=== PATIENT | female | born 1950 | race Caucasian/White ===

== ENCOUNTER → 2020-08-22 | Outpatient (CLI) | payer OTHER | LOC: RAD 15:27 | PROVIDERS: ATTEND Family Medicine | DX: J44.9 Chronic obstructive pulmonary disease, unspecified (principal) ==

== ENCOUNTER 2020-09-26 13:17 | Inpatient (IN) | payer OTHER ==
[~2020-09-26] VITALS: Ht 167.6 cm; Wt 77.1 kg
[2020-09-26 13:26] VITALS: BP 120/72
[2020-09-26 14:07] LABS: ABSOLUTE NEUTROPHILS 13.9 thou/uL (1.4-8.2); BASOPHILS 0.4 % (0.0-2.0); EOSINOPHILS 0.1 % (0.0-3.0); HEMATOCRIT 41.2 % (37.0-47.0); HEMOGLOBIN 13.4 gm/dL (12.0-15.0); LYMPHOCYTES 6.6 % (24.0-44.0); MCH 27.6 pg (26.0-34.0); MCHC 32.6 g/dL (28.0-37.0); MCV 84.5 fL (80.0-100.0); MONOCYTES 8.6 % (1.0-8.0); PLATELET COUNT 576 thou/uL (150-400); POLYS 84.3 % (36.0-66.0); RBC 4.87 mil/uL (4.20-5.00); RDW 14.2 % (10.5-14.5); WBC 16.4 thou/uL (4.0-11.0)
[2020-09-26 14:16] LABS: POTASSIUM 3.2 mmol/L (3.5-5.1)
[2020-09-26 14:20] LABS: BE(vivo) -2.3 mmol/L (-2 to +3); HCO3 20.1 mmol/L (22.0-26.0); PCO2 28.6 mmHg (35.0-45.0); PO2 62.6 mmHg (80.0-100.0); pH 7.464 (7.360-7.450); sO2 93.5 % (92.0-98.0)
[2020-09-26 14:28] LABS: ALBUMIN 2.6 g/dL (3.4-5.0); DIRECT BILIRUBIN 0.2 mg/dL (<0.1-0.2); TOTAL BILIRUBIN 0.8 mg/dL (0.2-1.0); TOTAL PROTEIN 7.6 g/dL (6.4-8.2)
[2020-09-27 06:18] LABS: HEMATOCRIT 36.1 % (37.0-47.0); HEMOGLOBIN 11.8 gm/dL (12.0-15.0); MCH 27.5 pg (26.0-34.0); MCHC 32.7 g/dL (28.0-37.0); MCV 84.2 fL (80.0-100.0); RBC 4.29 mil/uL (4.20-5.00); RDW 14.2 % (10.5-14.5); WBC 13.4 thou/uL (4.0-11.0)
[2020-09-27 06:34] LABS: ANION GAP 16 mmol/L (7-16); BUN 12 mg/dL (7-18); CALCIUM 8.6 mg/dL (8.5-10.1); CHLORIDE 104 mmol/L (98-107); CO2 20 mmol/L (21-32); CREATININE 0.8 mg/dL (0.6-1.0); GLUCOSE 102 mg/dL (74-106); SODIUM 140 mmol/L (136-145); TROPONIN-I <0.06 ng/mL (<0.06)
--- NOTE | 2020-09-27 07:06 | EKG ---
[facility] [place] [address] ELECTROCARDIOGRAM REPORT Name: ORTEGA KNIGHT Room #: 170- ADM IN M.R.#: [id number] Admission: 09/26/20 Attend Phys: Ellen Anderson MD Discharge: Date of : 54 Report #: [id number] THIS REPORT FOR: cc: Juanpablo Garcia MD, Rene P. MD Santiago, Patrick MD [facility] ~ THIS REPORT FOR: //name// [facility] ED Test Date: 2020-09-26 Test Time: 13:59:14 Pat Name: ORTEGA KNIGHT Department: Room: 170 12 Gender: F Director Of Manufacturing: [email or web address] : 1950 Requested By: Enrique Kinney Order Number: [id number] MD: Paul Awad Measurements Intervals [place] Rate: 115 P: 61 PA: 136 QRS: 69 QRSD: 90 T: 1 QT: 320 QTc: 443 Interpretive Statements Sinus tachycardia Probable left atrial enlargement Borderline repolarization abnormality No previous ECG available for comparison Electronically Signed On 09-27-2020 7:06:13 PAD CUTTER by Paul Awad [email or web address] <ELECTRONICALLY SIGNED> By: Paul Awad MD, FACC 09/27/20 0706 1359 [id number] Paul Awad MD, FAC /EPI
[2020-09-27 09:16] LABS: INR 1.1; PROTIME 11.1 Seconds (9.3-11.4)
[2020-09-27 13:35] LABS: BF NUCLEATED CELLS 6255 /mm3; BF RBC 14199 /mm3
[2020-09-27 13:36] LABS: CLARITY CLOUDY; TOTAL VOLUME 58 mL
[2020-09-27 13:37] LABS: COLOR RED
[2020-09-27 16:43] LABS: SOURCE THORACENTESIS
[2020-09-27 16:46] VITALS: BP 159/76
[2020-09-27 16:51] LABS: BF MACROPHAGE 13 %; BF NEUTROPHILS 72 %
[2020-09-27 17:20] VITALS: BP 135/78
[2020-09-27 17:28] LABS: SOURCE THORACENTESIS
[2020-09-27 17:30] VITALS: BP 135/78
[2020-09-27 19:43] VITALS: BP 156/84
--- NOTE | 2020-09-27 20:45 | NUR ---
RECEIVED REPORT FROM ED NURSE AT 1700. PT BROUGHT TO UNIT AT APPROXIIMATELY 1730. PT IV INFILTRATED, UNABLE TO ESTABLISH NEW IV, IV TEAM CALLED, NO CALL RETURNED AT THIS TIME. ADMISSION VITAL SIGNS OBTAINED. PT IN BED, FALL PRECAUTIONS IN PLACE.
--- NOTE | 2020-09-27 21:17 | NUR ---
PATIENT ADMITTED FROM ER WITH PNA, RESP FSILURE, AND PUI. PATIENT C/O PAIN WITH CHEST AREA AND ABDOMEN AREA. PATIENT VOMITED X 5 DURING ADMISSION, GREEN COLOR. PATIENT TESTED NEGATIVE FOR COVID. PATIENT'S IV NOT IN PLACE, IV TEAM CALLED BY RITO/CELSO. PATIENT ALERT AND ORIENTED X 4. ADMISSION COMPLETED, REPORT GIVEN TO CORDELL/CELSO.
[2020-09-28 00:01] VITALS: BP 156/84
[2020-09-28 04:52] VITALS: BP 158/69
--- NOTE | 2020-09-28 06:40 | NUR ---
PT AOX4. PT REPORTS DENIES PAIN UPON ASSESSMENT. PT DENIES SOB AT REST WHILE ON 2L O2 VIA NC. PT NOTED TO HAVE SOB WITH EXERTION. PT RECEIVING PRN PO NORCO Q4HR AND PRN IV MORPHINE Q4HR WITH PRN PO APAP Q4HR AVAILABLE. PT TOLERATING PO INTAKE OF FLUIDS AND REGULAR DIET WITHOUT ISSUE. PT REPORTS NAUSEA WITH SMALL EMESIS X1 OF BILE LIKE CONTENTS. PT RECEIVING PRN IV ZOFRAN Q4HR. PT REFUSING TO AMBULATE, RESTING IN BED THROUGHOUT SHIFT. FREQUENT REPOSITIONING ENCOURAGED, PT NOTED TO SHIFT INDEPENDENTLY WHILE IN BED. PT VOIDING PER BEDPAN. PT WITHOUT IV ACCESS UPON START OF SHIFT, DIFFICULT TO START IV, 5 ATTEMPTS MADE, IV LOCATED IN LEFT HAND, FLUIDS INFUSING WITHOUT ISSUE. PT REFUSING IV KCL DUE TO PREVIOUS PAIN WITH ADMINISTRATION, REQUESTING MIDLINE FOR ACCESS. ONCALL BEHAVIORAL HEALTH SPECIALIST NOTIFIED, RECEIVED ORDER FOR ONETIME PO KCL OF 20MEQ ORAL SOLUTION. PT TOLERATED ORAL SOLUTION OF KCL WITHOUT ISSUE. PT ENCOURAGED TO NOTIFY STAFF FOR ALL NEEDS, CALL LIGHT WITHIN REACH, BED IN LOWEST POSITION, BED ALARM ON, FREQUENT MONITORING WILL CONTINUE.
[2020-09-28 07:37] VITALS: BP 167/81
--- NOTE | 2020-09-28 08:04 | NUR ---
CALLED CONSULT TO DR SKINNER REVENUE MANAGER FOR DR GILBERT
[2020-09-28 16:28] VITALS: BP 151/85
[2020-09-28 23:11] VITALS: BP 148/72
[2020-09-28 23:18] VITALS: BP 148/72
--- NOTE | 2020-09-29 01:00 | NUR ---
ASSUMED PT CARE AT AROUND 2000HRS. PT OBSERVED IN BED WITH NAUSEA BUT NO PRESENCE OF EMESIS. SHE CALLS WITH NEEDS. WITH A CONGESTED COUGH.URINARY URGENCY AND FREQUENCY NECESSITATING USE OF BEDPAN. PT APPEARS REALLY WEAK AND IN SOME MODERATE DISTRESS.AFEBRILE.BANDAID IN PLACE TO R BACK WHERE THEY DID THE THORACENTESIS ON 09/27. NO DRAINAGE FROM SITE.FALL PREC IN PLACE.
--- NOTE | 2020-09-29 08:14 | NUR ---
ASSUMED PT CARE APPROX 2300. PT RESTING IN BED WITHOUT INTERRUPTION OR OBSERVATION OF PAIN. PT REPORTS NAUSEA WITHOUT EMESIS. PT RECEIVING PRN IV ZOFRAN Q4HR. PT REFUSING TO AMBULATE TO BEDSIDE COMMODE DUE TO REPORTS OF WEAKNESS, BEDPAN USED FOR VOIDING. PT DENIES PAIN. PT REPORTS SOB WHILE ON 2L O2 VIA NC, O2 INCREASED TO 3L VIA NC, PT REPORTS IMMEDIATE RELIEF. PT IV SITE NOTED TO CAUSE PAIN TO TOUCH WITHOUT REDNESS, STREAK, OR EDEMA, PT REPORTS SORENESS TO DUE IV LOCATION IN HAND, UNABLE TO FLUSH IV AFTER ZOFRAN GIVEN AND DRESSING CHANGED. PT REQUESTING MIDLINE DUE TO DIFFICULTY INSERTING IV. PROVIDED ASSURANCE THAT DAYSHIFT TEAM WILL BE NOTIFIED. ENCOURAGED PT TO NOTIFY STAFF FOR ALL NEEDS, CALL LIGHT WITIN REACH, BED ALARM ON, BED IN LOWEST POSITION, FREQUENT MONITORING WILL CONTINUE.
--- NOTE | 2020-09-29 08:19 | HC ---
[facility] [place] [address] CONSULTATION Name: ORTEGA KNIGHT Room #: 447-P ADM IN ..#: [id number] Admission: 09/26/20 Attend Phys: Ellen Anderson MD Discharge: Date of : 54 Report #: [id number] THIS REPORT FOR: cc: Juanpablo Garcia MD, Rene P. MD Barry, Joseph W. MD ~ DATE OF SERVICE: 09/27/2020 INFECTIOUS DISEASE CONSULTATION ATTENDING PHYSICIAN: Dr. Anderson. REASON FOR EVALUATION: Pneumonitis, complicated by respiratory failure. HISTORY OF SUBJECTIVE: Chart reviewed, the patient examined. This is a 70-year-old woman with underlying COPD, who notes she has been not feeling well for at least a couple of months. She notes a 30-pound weight loss, had developed more recently around August 22, some dyspnea, was evaluated as an outpatient. Apparently, lab was unremarkable as was chest x-ray, which showed scarring, no acute process and recently 10 days ago developed nausea, emesis and progressive dyspnea. She has been quite fatigued in addition, weight loss. She has had poor p.o. intake. She was evaluated and negative COVID testing. Chest x-ray showed consolidative process involving the right lung associated fluid, did undergo thoracentesis of 1160 mL of turbid fluid. Gram stain was no evident organisms. Culture is pending. She was found to be hypoxemic, placed on supplemental oxygen at 2 liters. She was empirically started on antibiotics with ceftriaxone, azithromycin. Initial evaluation noted lactic acid to be 1.7, procalcitonin of 0.25. ALLERGIES: None known. CURRENT MEDICATIONS: Include ceftriaxone, pantoprazole, budesonide, ipratropium, albuterol inhaler, morphine sulfate as needed. PAST MEDICAL HISTORY: Includes hypertension, hyperlipidemia, COPD, history of granulomatous disease, anticardiolipin antibody syndrome. SOCIAL HISTORY: Former smoker. FAMILY HISTORY: Noncontributory. REVIEW OF SYSTEMS: As above. PHYSICAL EXAMINATION: [facility] [address] [place] [address] CONSULTATION Name: ORTEGA KNIGHT Room #: 447-P [facility] IN ..#: [id number] Admission: 09/26/20 Attend Phys: Ellen Anderson MD Discharge: Date of : 54 Report #: [id number] GENERAL: She appears chronically ill, undernourished. She is lucid, jfyl-lo-diqazwuj distress. VITAL SIGNS: Temperature 97.9, pulse 96, respirations 16, blood pressure 159/76. SKIN: Warm, dry, no rashes. HEENT: Normocephalic. Extraocular muscles intact. NECK: Supple. LUNGS: Diminished breath sounds, coarse, right greater than left. HEART: Regular. Borderline tachycardic. I do not appreciate murmur. ABDOMEN: Tender to palpation across the mid portion. There are no overt peritoneal signs. EXTREMITIES: Distal lower fingers have clubbing. GENITOURINARY: Deferred. RECTAL: Deferred. LABORATORY DATA: Pleural fluid is red and cloudy, ____ white cells, 72% neutrophils. Culture is in progress. Coronavirus testing was negative. Blood cultures sterile thus far. CTA chest PE protocol, no evidence of PE and old granulomatous disease, airspace infiltrate involving the right upper, middle and lower lobes, question of a mediastinal mass. ASSESSMENT: Pneumonitis without evidence of COVID. There is acute on chronic respiratory failure. I agree with empiric therapy. We will adjust regimen. I do not think the azithromycin is probably adding much in this setting. We will cover for resistant gram positives, do a screening MRSA. Sputum is forthcoming. We will try to collect a sputum sample. I certainly suggest there is an occult process underlying would be concerned about malignancy. Given the possibility of mediastinal mass, we will check CT of the abdomen and pelvis as well to exclude intraabdominal process given the weight loss and the GI related complaints. Continue fluid resuscitation. <ELECTRONICALLY SIGNED> By: Bethel Kay MD 09/29/20 0819 1700 0209 Bethel Kay MD /nt
[2020-09-29 10:27] VITALS: BP 148/84
--- NOTE | 2020-09-29 12:51 | NUR ---
ASSESSMENT-S/W PT BY PHONE IN PT'S ROOM. PRIOR TO ADMISSION PT WAS INDEPENDENT OF ADLS, AMBULATION AND WAS DRIVING. SAYS HE IS IN GOOD HEALTH BUT IS OLDER THAN THE PT. DR CARNES IS HER PCP. PT HAS NOT HAD ANY HH SERVICES. PT'S MEDICAL WORK-UP IS IN PROGRESS. FOLLOWING TO ASSIST WITH DC PLANNING.
[2020-09-29 14:11] LABS: BODY FLUID AMYLASE 115 U/L (()); BODY FLUID GLUCOSE 71 mg/dL (()); BODY FLUID LDH 866 IU/L (()); BODY FLUID PROTEIN 3.9 g/dL (())
[2020-09-29] MEDS ORDERED: PRAVACHOL40 MG PO (15:19)
[2020-09-29] MEDS ORDERED: METOPROLOL TART25 MG PO (15:20)
[2020-09-29] MEDS ORDERED: LISINOPRIL10 MG PO (15:20)
[2020-09-29] MEDS ORDERED: BUPROPION XL150 MG PO (15:21)
[2020-09-29] MEDS ORDERED: OMEPRAZOLE40 MG PO (15:21)
[2020-09-29 15:33] VITALS: BP 160/102
--- NOTE | 2020-09-29 17:10 | NUR ---
A 4FRSLPICC PLACED WITH TIP AT THE [facility], PLEASE SEE NI FOR DETAILS
--- NOTE | 2020-09-29 17:19 | NUR ---
PT CARE ASSUMED AT 0700. A&Ox4. PT NOT TOLERATING HER FOOD VERY WELL AND CONTINUES TO HAVE INTERMITTEN NAUSEA AND VOMITTING. IV INFILTRATED. SINGLE LUMEN PICC LINE PLACED. PLACEMENT CONFIRMED. FALL PROTOCOL IN PLACE. EGD PLANNED FOR FRIDAY. POSSIBLE BRONCHOSCOPY PER DR. ASHTON. JAYME GIVEN WITHOUT MUCH RESULTS. AWARE. IV ANTIBIOTICS INFUSING. MEDICATION RECONCILLED AND DR. HSIEH INFORMED. CALL LIGHT IN REACH. WILL CONTINUE TO MONITOR.
[2020-09-29 20:16] VITALS: BP 153/83
[2020-09-30 00:08] VITALS: BP 144/97
[2020-09-30 03:46] VITALS: BP 131/98
[2020-09-30 08:05] VITALS: BP 158/77
--- NOTE | 2020-09-30 09:35 | NUR ---
PT AOX4. PT DENIES PAIN. PT HAS PRN PO NORCO Q4HR AND PRN IV MORPHINE Q4HR AVAILABLE. PT REPORTS SOB WHILE ON 2L VIA NC, O2 INCREASED TO 3L, PT EXPRESSING IMMEDIATE RELIEF. PT TOLERATING PO INTAKE OF FLUIDS AND HEART HEALTHY DIET. PT REPORTS NAUSEA WITHOUT EMESIS. PT RECEIVING PRN IV ZOFRAN Q4HR. PT EXPERIENCING BREAKTHROUGH NAUSEA. ONCALL FREIGHT AIR BRAKE FITTER NOTIFIED, EMAR UPDATED. PT RECEIVING PRN IV COMPAZINE Q4HR WITH POSITIVE EFFECT.PT VOIDING PER BEDPAN. PT CONTINUES TO REST IN BED THROUGHOUT SHIFT, FREQUENT REPOSITIONING ENCOURAGED. PT NOTED TO SHIFT INDEPENDENTLY WHILE IN BED. PT ENCOURAGED TO NOTIFY STAFF FOR ALL NEEDS, CALL LIGHT WITHIN REACH, BED ALARM ON, BED IN LOWEST POSITION, FREQUENT MONITORING WILL CONTINUE.
[2020-09-30 11:16] LABS: HEMATOCRIT 33.2 % (37.0-47.0); HEMOGLOBIN 11.3 gm/dL (12.0-15.0); MCH 28.1 pg (26.0-34.0); MCV 82.6 fL (80.0-100.0); RBC 4.01 mil/uL (4.20-5.00); WBC 12.6 thou/uL (4.0-11.0)
[2020-09-30 11:24] LABS: CALCIUM 8.4 mg/dL (8.5-10.1); CREATININE 0.7 mg/dL (0.6-1.0)
[2020-09-30 12:04] LABS: POTASSIUM 2.4 mmol/L (3.5-5.1)
--- NOTE | 2020-09-30 12:08 | NUR ---
CALLED LAB [facility] TO DR CALDWELL WAS 2.5 DR CALDWELL STATED WOULD LOOK AT LABS AND PUT ORDER IN
[2020-09-30 16:20] VITALS: BP 143/71
--- NOTE | 2020-09-30 17:21 | NUR ---
CALLED DR SMITH AND EXPLAINED THAT PATIENT WAS BLADDER SCANNED SHOWED >1475. ON STRAIGHT 2100 CC OF CLEAR YELLOW URINE NO DISCOMFORT TO PATIENT . UA SENT TO LAB.
[2020-09-30 20:03] VITALS: BP 145/71
[2020-10-01 04:07] VITALS: BP 138/88
--- NOTE | 2020-10-01 05:47 | NUR ---
ASSUMED PT CARE AT 1900.PT DENIED PAIN/N/V SO FAR.PT HAS HAD THREE LOOSE STOOLS THIS SHIFT,STOOL SOFTENER HELD AT HS PER PT'S REQUEST.PT STILL ON 3L/NC.PT ABLE TO MOVE HERSELF IN BED.SOB WITH EXERTION NOTED WITH ACTIVITY. PT'S POTASSIUM STILL LOW ,COAT REPAIR INSPECTOR ON DUTY NOTIFIED,ORDER NOTED AND CARRIED OUT.PT STILL WITH NON PRODUCTIVE LOOSE COUGH.MULTIPLE BRUISING NOTED ON HER BUE.PT SLEEPING ON HER BED AT THIS TIME BREATHING NORMAL AND NON LABORED.CALL LIGHT WITHIN REACH.
[2020-10-01 07:31] VITALS: BP 154/82
[2020-10-01 10:36] LABS: CALCIUM 8.3 mg/dL (8.5-10.1); CREATININE 0.9 mg/dL (0.6-1.0); MAGNESIUM 1.2 mg/dL (1.8-2.4)
[2020-10-01 10:54] LABS: POTASSIUM 2.8 mmol/L (3.5-5.1)
--- NOTE | 2020-10-01 15:01 | NUR ---
ASSUMED PT CARE THIS AM. PT VSS, A&OX4. CRITICAL LAB CALLED ON PATIENT WITH POTASSIUM OF 2.8. ELECTROLYTE PROTOCOL IN PLACE, GIVEN PO POTASSIUM X3 PER EMAR AND PROTOCOL. REDRAW TO BE COMPLETED. IV PATENT, MEDS INFUSING WITHOUT COMPLAINT. PT USES A BEDPAN, HAS NOT AMBULATED DURING THE SHIFT. TAKES MEDS WHOLE WITHOUT ISSUE. FLUIDS ENCOURAGED. PT HAS A LOOSE COUGH, HAVE NOT OBSERVED ANY SPUTUM BEING COUGHED UP.
[2020-10-01 16:20] VITALS: BP 132/86
[2020-10-01 19:32] VITALS: BP 139/77
[2020-10-02 03:04] VITALS: BP 156/92
--- NOTE | 2020-10-02 05:24 | NUR ---
PT AOX4. PT DENIES PAIN AND SOB WHILE ON 3L O2 VIA NC. PT HAS PRN PO APAP Q4HR, PRN PO NORCO Q4HR, AND PRN IV MORPHINE Q4HR AVAILABLE. PT TOLERATING PO INTAKE OF FLUIDS AND HEART HEALTHY DIET. REVIEWED NOTE HISTORY, DIET ORDER NOT UPDATED FOR PROCEDURE. ONCALL NEWS PRODUCTION SUPERVISOR NOTIFIED, RECEIVED ORDERS FOR NPO AFTER MIDNIGHT. PT RESTING IN BED THROUGHOUT SHIFT, REFUSING AMBULATION DUE TO WEAKNESS. FREQUENT REPOSITIONING ENCOURAGED, PT NOTED TO SHIFT INDEPENDENTLY WHILE IN BED. PT VOIDING PER BEDPAN. PT ENCOURAGED TO NOTIFY STAFF FOR ALL NEEDS, CALL LIGHT WITHIN REACH, BED ALARM ON, BED IN LOWEST POSITION, FREQUENT MONITORING WILL CONTINUE.
[2020-10-02 08:14] VITALS: BP 153/84
--- NOTE | 2020-10-02 13:09 | NUR ---
ASSUMED CARE AT 0700. PT WAS CURRENTLY NPO SO ONLY METOPROLOL WAS GIVEN TO PT. PT DENIES ANY PAIN, N,V, THIS AM. PT HAS RIGHT UPPER ARM PICC LINE AND SHOWS NO SIGNS OF REDNESS OR SWELLING. PT HAS NON PRODUCTIVE COUGH AND HAD A EGD DONE TODAY. PT DENIES SOA. WILL CONINUE TO MONITOR FOR PAIN
--- NOTE | 2020-10-02 14:06 | PATH ---
[facility] [place] [address] PATHOLOGY RPT PROCEDURE Name: ORTEGA KNIGHT Room #: 447-P ADM IN M.R.#: [id number] Admission: 09/26/20 Date of : 54 Discharge: Report #: [id number] Path Case #: [id number] Note [facility] Accession Number: [id number] TESTS RESULT FLAG UNITS REF RANGE LAB Clinician Provided Cytology Information No. of containers..01 Other (Miscellaneous) Source: [A] 01 PLEURAL FLUID DIAGNOSIS: [A] 02 PLEURAL FLUID POSITIVE FOR MALIGNANT CELLS. METASTATIC CARCINOMA IS PRESENT. THIS INTERPRETATION INCLUDES EVALUATION OF A CELL BLOCK. SEE COMMENT: COMMENT: Immunohistochemical stains are performed on this specimen as follows (A1; appropriate controls): Leodan-EP4 - Positive CK7 - Positive GATA3 - Positive CK20 - Negative TTF1 - Negative Calretinin - Highlights mesothelial cells Desmin - Highlights mesothelial cells These findings support the above diagnosis and are compatible with a metastatic carcinoma. The leading differential is a breast primary, however, other primary sites cannot be excluded. Clinical correlation is recommended. The case findings are discussed with Liat at Dr. Garcia's office on 10/02/[address] Sanz co-review Pathologist ICD10: 02 J91.0 Signed out by: 02 Jersey Espinal MD, Pathologist NPI- [id number] Performed by: Cleo Delgadillo, Poured Concrete Wall Technician ([facility]) Gross description: 01 25ML, RED-ORANGE, 1 TP 1 CB /LCS 09/27/2020 1414 Local FLAG LEGEND: L-Low Normal,H-High Normal,LL-Alert Low,HH-Alert High <-Panic Low,>-Panic High,A-Abnormal,AA-Critical Abnormal [address] [address] PATHOLOGY RPT PROCEDURE Name: ORTEGA KNIGHT Room #: 447-P [facility] IN .R.#: [id number] Admission: 09/26/20 Date of : 54 Discharge: Report #: [id number] Path Case #: [id number] Performed at: [address] [place] [address] Adan Olivarez MD, 02 [facility] [address] [address] Deisy Gardner MD, Specimen Comment: A courtesy copy of this report has been sent to [phone] Specimen Comment: Report sent to Performed at: 01 [facility] [address] [place] [address] [address], [place], [place] [id number] MD Adan Olivarez MD Phone: [phone]
--- NOTE | 2020-10-02 14:50 | NUR ---
ON-GOING ASSESSMENT: CM REVIEWED CHART AND SPOKE WITH ATTENDING. PT IS CURRENTLY STILL ON 3L OXYGEN. CYTOLOGY IS PENDING AND WILL DIRECT CARE. PT REMAINS ON IV ANBX. 5N CONSULT HAS BEEN PLACED TO EVALUATE PATIENT. WILL AWAIT FURTHER INPUT AT THIS TIME. CM WILL CONTINUE TO FOLLOW TO ASSIST NEEDED.
[2020-10-02 19:34] VITALS: BP 151/86
[2020-10-03 04:00] VITALS: BP 138/65
--- NOTE | 2020-10-03 05:00 | NUR ---
PT ALERT AND ORIENTED. WEAK, USED BED [employer]DR[employer] THRO THE NOC. STABLE ON 3L/NC.WITH A CONGESTED COUGH.NO N/V. DENIES PAIN THRP THE NOC.
[2020-10-03 08:00] VITALS: BP 112/68
--- NOTE | 2020-10-03 10:47 | NUR ---
PATIENT IN ROOM WITH AT BEDSIDE. DR CALDWELL HERE TO SEE PATIENT REVIEWED HER TEST RESULTS. DR LIMA HERE TO SEE PATIENT STATED CA CELLS FOUND AND THAT HE WOULD BE SPEAKING WITH DR WILSON AND PLAN OF CARE WOULD BE PUT IN PLACE AND THAT DR WILSON WOULD SPEAK WITH PATIENT AND .
--- NOTE | 2020-10-03 12:55 | NUR ---
ON-GOING ASSESSMENT: CM REVIEWED CHART AND SPOKE WITH ATTENDING. PT HAD THORACENTESIS PREVIOUS DAYS AND PATH REPORT DECRIBES METASTATIC CARCINOMA IS PRESENT. ONCOLOGY IS ON BOARD AND FOLLOWING ALONG WITH PULMONARY. POSSIBLE PLANS FOR BRONCH IN THE NEXT 1-2 DAYS. 5N IS CONTINUING TO FOLLOW PATIENT. CM WILL CONTINUE TO FOLLOW TO ASSIST NEEDED.
[2020-10-03 16:00] VITALS: BP 155/70
[2020-10-03 20:14] VITALS: BP 135/84
--- NOTE | 2020-10-04 03:50 | NUR ---
PT CONTINUES ON . SHE HAS LABORED BREATHING. SHE'S HAD A FEW COUGHING SPELLS, NO VOMITING.SHE IS SO WEAK, TRIED TO STAND AND USE BSC BUT COULD NOT.PT USED BEDPAN. SHE IS CONTINENT.BOWEL SOUNDS PRESENT, NO BM THIS SHIFT. NPO SINCE MIDNOC WITH PLANS FOR BROCHOSCOPY TODAY.PT SEEMS FLAT AND WITHDRAWN.THERAPEUTIC PRESENCE PROVIDED.FALL PREC IN PLACE, CALL LIGHT WITHIN REACH.
[2020-10-04 04:29] VITALS: BP 138/77
[2020-10-04 07:40] VITALS: BP 147/85
--- NOTE | 2020-10-04 16:00 | NUR ---
ON-GOING ASSESSMENT: CM REVIEWED CHART AND SPOKE WITH PT. PTS IS AT THE BEDSIDE. PT HAD A BRONCH TODAY. PT/OT VARIANCED PT DUE TO PROCEDURE. 5N IS FOLLOWING. CM WILL CONTINUE TO FOLLOW TO ASSIST NEEDED.
[2020-10-04 16:05] VITALS: BP 149/71
--- NOTE | 2020-10-04 16:45 | NUR ---
PT WENT TO PROCEDURE BRONCHOSCOPY, CURRENTLY IN ROOM RESTING. PT IS AOX4, COUGHING, 3L 02 PER NC. DENIES PAIN AT THIS TIME. INCONTINENT OF BLADDER, EXTERNAL CATHETER PLACED. CALL LIGHT IN REACH, PT CALLS APPROPRIATELY. WILL CONTINUE TO MONITOR.
--- NOTE | 2020-10-04 17:27 | P ---
[facility] [place] [address] PROCEDURE REPORT Name: ORTEGA KNIGHT Room #: 447-P ADM IN ..#: [id number] Admission: 09/26/20 Attend Phys: Ellen Anderson MD Discharge: Date of : 54 Report #: [id number] THIS REPORT FOR: cc: Juanpablo Garcia MD, Rene P. MD McElhinney, Christian C. MD ~ CC: Ellen Garcia DATE OF SERVICE: 10/02/2020 PROCEDURE PERFORMED: Upper endoscopy with biopsies. HISTORY OF PRESENT ILLNESS: The patient is a 70-year-old female who was admitted with increasing shortness of breath. Imaging showed pleural effusion, right mediastinal mass, possible mediastinal mass, postobstructive pneumonia, thoracentesis was performed. The patient has been having intermittent nausea and vomiting. She does have a history of reflux. Reportedly, on antacid therapy at home. KUB showing possible ileus. CT scan of the abdomen and pelvis on 09/27/2020 showed findings suggestive of gastritis and thickened esophagus, possibly related to reflux. A small to moderate hiatal hernia was noted. Small paraesophageal lymph nodes are present distal esophageal neoplasm is less likely. Plan is for upper endoscopy. The patient denies any dysphagia or odynophagia. DESCRIPTION OF PROCEDURE: The risks and benefits of the procedure were explained to the patient, those risks including but not limited to bleeding, perforation and the risk of sedation. She understood these risks and gave informed consent. Sedation was given using propofol per anesthesia. Next, using a standard Olympus upper endoscope, the scope was placed in the patient's mouth and advanced under direct vision through the esophagus, stomach and into the second portion of the duodenum. The upper and mid esophagus was normal in appearance. In the distal esophagus, no evidence of esophagitis; however, a possible short segment of Aldridge's was noted. Biopsies were obtained. Upon entering the stomach, a small hiatal hernia was noted. Overall, the gastric mucosa was normal. No ulcerations or erosions noted. Biopsies were obtained to rule out H. pylori. The pylorus was normal and patent. The duodenal bulb, first and second portion were all normal. The scope was then withdrawn and the procedure terminated. The patient tolerated the procedure well. IMPRESSION: 1. 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 2. Small hiatal hernia. [facility] [address] [place] [address] PROCEDURE REPORT Name: ORTEGA KNIGHT Sonali Room #: 447-P [facility] [id number] Admission: 09/26/20 Attend Phys: Ellen Anderson MD Discharge: Date of : 54 Report #: [id number]. Otherwise, normal upper endoscopy. RECOMMENDATIONS: 1. Await biopsy results. 2. Continue daily PPI therapy. 3. Advance diet as tolerated. Continue antiemetics as needed. Thank you for allowing me to participate in her care. <ELECTRONICALLY SIGNED> By: Etienne Sotomayor MD 10/04/20 1727 1519 0141 Etienne Sotomayor MD /nt
[2020-10-04 19:06] VITALS: BP 128/76
--- NOTE | 2020-10-05 02:17 | NUR ---
NO NAUSEA OR VOMITING. CONTINUES TO LOOK WEAK AND VERY ILL.PT IS INCONTINENT OF BLADDER AT TIMES AND SHE ALSO ASKS TO USE BEDPAIN. ON , MOMENTS OF SOA.AFEBRILE. SWALLOWS MEDS OKAY.CONGESTED RETAIL REPRESENTATIVE COUGH. LUNGS ARE COARSE.FALL PREC IN PLACE.
[2020-10-05 04:19] VITALS: BP 137/80
[2020-10-05 07:51] VITALS: BP 150/90
--- NOTE | 2020-10-05 09:15 | HC ---
[facility] [place] [address] [place] [address] CONSULTATION Name: KNIGHT,ORTEGA Sonali Room #: 447-P ADM IN .R.#: [id number] Admission: 09/26/20 Attend Phys: Ellen Anderson MD Discharge: Date of : 54 Report #: [id number] THIS REPORT FOR: cc: Juanpablo Garcia MD, Rene P. MD [facility] MD ~ DATE OF SERVICE: 10/03/2020 REQUESTING PHYSICIAN: Dr. Ellen Anderson REASON FOR CONSULT: Malignant cells seen on pleural effusion. HISTORY OF PRESENT ILLNESS: The patient is a 70-year-old female who lives down at the ____ with her for about the last 7 years. She is a previous smoker. She came in with about a 30-pound weight loss and emesis, but when I discussed with her, it sounds like it may have been more of a tussive emesis that began as a cough, not pure nausea. Here on evaluation, she has been found to have a right-sided pleural effusion and the pleural cytology appears to be consistent with carcinoma because the staining pattern they mentioned breast primary though other sites could not be excluded. The patient has not had a mammogram in probably almost 10 years. She is not aware of any breast masses, but does not check. I did not find any on exam today. I discussed with her that we see some more cells or fluid, they were trying to determine where they came from. I did have a chance to talk to Dr. Javid Denise who will consider a bronchoscopy. The patient did have an EGD yesterday, but no malignant changes were seen though there may have been some early Aldridge's seen. The patient has had, up until ____ really not had any fevers, has not really had any significant bowel changes and/or any blood in her urine or stool. No skin rashes. No lumps or bumps that she is aware of. PAST HISTORY: Notable for what sounds like COPD; also possibly hyperlipidemia and hypertension; also what may have been a TIA or a stroke several years ago; and a mention of anticardiolipin syndrome, though the patient does not seem to have any knowledge about this. SOCIAL HISTORY: She is retired about 7 years ago. 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 It sounds like they have a son here in town with some grandchildren. also has a brother here in town who he is staying with while she is in the hospital. The patient is a former smoker. I do not think there is any significant alcohol and no street drugs. MEDICATIONS: Current medications at this time in the hospital include Lovenox 40 mg at bedtime, magnesium sulfate and oxide on a replacement schedule, [address] [address] CONSULTATION Name: ORTEGA KNIGHT Room #: 447-P ADM IN .R.#: [id number] Admission: 09/26/20 Attend Phys: Ellen Anderson MD Discharge: Date of : 54 Report #: [id number] Compazine p.r.n., ____ p.r.n., vancomycin and ceftriaxone on a scheduled basis, pantoprazole 40 daily, budesonide respiratory therapy, ipratropium and albuterol respiratory therapy, morphine sulfate p.r.n., hydrocodone p.r.n., Tylenol p.r.n. and Zofran p.r.n. PHYSICAL EXAMINATION: GENERAL: The patient appears her stated age. She is laying in the hospital bed on the general Med/Surg floor. VITAL SIGNS: Height is 5 feet 6 inches, 167.6 cm. Weight is 170 pounds or 77.1 kilograms. Recent temperature is 99.3 orally. Blood pressure 138/65, respirations 22. O2 sat 95%. MOOD: She is anxious. LUNGS: Seem clear anteriorly. At this time, no enlarged lymph nodes in the supraclavicular, cervical, axillary, inguinal, or epitrochlear region. ABDOMEN: Slightly obese. No masses. EXTREMITIES: Without clubbing or cyanosis. Noted on exam, there may be some slight right-sided weakness, but I maybe overreading this. LABORATORY DATA: Lab results here; BUN is 7, creatinine of 0.9. Liver functions normal. Calcium 8.3, albumin 2.6. Coags were normal. White count 12.6, hemoglobin 11.3. MCV 82.6, platelets of 418. Recent differential had been normal. The patient had been negative for influenza A and B and COVID antigen negative and also other salazar test negative. Imaging done here have included CT of angio that talked about extensive right-sided pulmonary airspace infiltrate with areas of airspace consolidation and a moderate right-sided pleural effusion, moderate centrilobular emphysema, no signs of PE, old granulomatous disease was seen. CT of the abdomen and pelvis raised the questions of gastritis with thickened esophagus, possibly related to reflux, also sjixc-bz-kfvhxkle hiatal hernia. Small paraesophageal lymph nodes are present. Distal esophageal neoplasm is less likely. A cystic right adnexal mass of 4.8 cm, could be assessed with routine followup pelvic ultrasound within 6 or 12 weeks. Distal colonic diverticulosis. Indeterminate T11 lytic lesion with peripheral sclerosis of 1.3 cm, could represent metastasis. Nonemergent bone scan could be considered. The patient had ultrasound thoracentesis on, I believe, 09/27/2020 with 1160 mL of fluid removed from the right side. ASSESSMENT AND PLAN: 1. Right-sided pleural effusion with malignant cells noted. We will talk to Pathology to see if additional tests could be done. I have also talked with Pulmonary to see if they can do a bronchoscopy to determine the source. Breast primary not likely given the exam and CT scan. We will order mammograms. We would consider PET scan as an outpatient to evaluate this as well as the bone [facility] [address] [place] [address] CONSULTATION Name: ORTEGA KNIGHT Room #: 447-P [facility] IN .R.#: [id number] Admission: 09/26/20 Attend Phys: Ellen Anderson MD Discharge: Date of : 54 Report #: [id number] lesion. 2. Right adnexal mass. We will need to follow up and also see if this looks like on other imaging. 3. Hypertension, meds per others. 4. Hyperlipidemia, meds per others. 5. Possible pneumonitis, meds per others. 6. Chronic obstructive pulmonary disease, meds per others. 7. 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 We need to clarify whether this is accurate or not. We will follow with you. <ELECTRONICALLY SIGNED> By: Freeman Willett MD 10/05/20 0915 0747 [id number] Freeman Willett MD /nt
[2020-10-05 09:50] LABS: T-SPOT.TB Negative
--- NOTE | 2020-10-05 11:24 | NUR ---
assumed care at 0700. pt is a&o x4. pt has picc line at right upper arm and shows no signs or redness or swelling. there was no draw back of blood on picc line. cathflo was ordered and given. will reassess in 2 hours to see if there is any blood return. currently trying to wean pt off of oxygen. currently pt is on 4.5 L of oxygen and will reassess oxygen level in 20 minutes. adequate nutrition. coarse lung sounds. VSS. fall precaution. call light within reach. pain complains of abd pain and was given hydrocodone with applesauce. pt is fully relief of abd pain after medication. pt still have congestive cough but denies n,v,d,soa. will cointue to monitor for breathing and pain.
--- NOTE | 2020-10-05 12:06 | PATH ---
[facility] [address] [address] [place] [address] PATHOLOGY RPT PROCEDURE Name: ORTEGA MORGAN Sonali Room #: 447-P ADM IN M.R.#: [id number] Admission: 09/26/20 Date of : 54 Discharge: Report #: [id number] Path Case #: [id number] [facility] Accession Number: [id number] . 01 Material submitted: . PART A: stomach - BIOPSY OF GASTRITIS R/O H.PYLORI PART B: esophagus - BIOPSY OF DISTAL ESOPHAGUS R/O TIJERINA'S. Modifiers: distal . 01 Clinician provided ICD-10: J18.9 J96.01 . 01 Clinical history: . DRAINAGE OF RIGHT PLEURAL CAVITY, PERCUTANEIOUS ANA, N/V, ABNORMAL CT, HIATAL HERNIA, PNA, RESP FAILURE, PUI . 02 Diagnosis: A. Stomach "gastritis", endoscopic biopsy: - Gastric oxyntic mucosa with features of reactive gastropathy (chemical gastritis). - Negative for intestinal metaplasia, dysplasia, and malignancy. - Negative for Helicobacter pylori. . B. Esophagus "distal", endoscopic biopsy: - Esophageal squamous and gastric cardia mucosa with features of chronic esophagitis and intestinal metaplasia (Tijerina's esophagus). - Negative for dysplasia and malignancy. (MLK/db; 10/04/2020) LBQ 10/05/2020 1157 Local . 02 Electronically signed: . Catrina Ortiz MD, Pathologist NPI- [id number] . 01 Gross description: . A. The specimen is received in formalin, labeled "Ortega Morgan, biopsy of gastritis, R/O H. pylori". Received are three segments of pale mayen soft tissue ranging in size from 0.3 to 0.6 cm in maximum dimensions. The specimen is submitted entirely in cassette A1. . B. The specimen is received in formalin, labeled "Ortega Morgan, biopsy of distal esophagus, R/O Tijerina's". Received are two segments of pale mayen soft tissue ranging in size from 0.3 to 0.4 cm in maximum dimensions. The specimen is submitted entirely in cassette B1. (CAA; 10/03/2020) QAC/QAC 10/03/[address] [address] PATHOLOGY RPT PROCEDURE Name: ORTEGA MORGAN Room #: 447-P [facility] IN M.R.#: [id number] Admission: 09/26/20 Date of : 54 Discharge: Report #: [id number] Path Case #: [id number] . 02 Microscopic: . Immunohistochemical stain results (properly controlled) . Helicobacter pylori (A1) - Negative for organisms . 02 Pathologist provided ICD-10: R11.2, R93.89, J18.9, J96.01 . 02 CPT . 060155, [id number], [id number] Specimen Comment: A courtesy copy of this report has been sent to [phone]- Specimen Comment: [phone], Specimen Comment: Report sent to ,DR CARNES / DR HSIEH Performed at: [address], [place] [id number] MD Adan Olivarez MD Phone: [phone] Performed at: [address] [id number] MD Deisy Gardner MD Phone: [phone]
[2020-10-05 16:12] VITALS: BP 135/109
[2020-10-05 18:58] LABS: HEMATOCRIT 31.5 % (37.0-47.0); HEMOGLOBIN 10.3 gm/dL (12.0-15.0); MCH 27.3 pg (26.0-34.0); MCHC 32.7 g/dL (28.0-37.0); MCV 83.4 fL (80.0-100.0); RBC 3.78 mil/uL (4.20-5.00); RDW 14.2 % (10.5-14.5); WBC 12.4 thou/uL (4.0-11.0)
[2020-10-05 19:15] LABS: CALCIUM 8.3 mg/dL (8.5-10.1); CREATININE 1.2 mg/dL (0.6-1.0)
[2020-10-05 19:19] LABS: POTASSIUM 2.6 mmol/L (3.5-5.1)
[2020-10-05 20:52] VITALS: BP 153/83
[2020-10-06 04:54] VITALS: BP 168/105
--- NOTE | 2020-10-06 08:18 | NUR ---
PT AOX4. PT REPORTS 10/10 NONCARDIAC CHEST PAIN WITH COUGHING. PT REPORTS SOB WITH EXERTION WHILE ON 4L. PT RECEIVING PRN CODEINE/PHOS-APAP Q4HR WITH PRN PO NORCO Q4HR AND PRN IV MORPHINE Q4HR AVAILABLE. PT TOLERATING PO INTAKE OF FLUIDS AND HEART HEALTHY DIET WITHOUT ISSUE. PT WITHOUT NAUSEA OR VOMITING. PT RESTING IN BED THROUGHOUT SHIFT, FREQUENT REPOSITIONING ENCOURAGED. PT NOTED TO SHIFT INDEPENDENTLY WHILE IN BED. PT VOIDING PER BEDPAN. PT ENCOURAGED TO NOTIFY STAFF FOR ALL NEEDS, CALL LIGHT WITHIN REACH, BED ALARM ON, BED IN LOWEST POSITION, FREQUENT MONITORING WILL CONTINUE.
[2020-10-06 09:06] VITALS: BP 140/59
[2020-10-06 15:47] VITALS: BP 140/59
--- NOTE | 2020-10-06 15:55 | NUR ---
ON-GOING ASSESSMENT: CM REVIEWED CHART AND SPOKE WITH ATTENDING WELL PT. 5N EVALUATED AND FEEL PT IS A CANIDATE AND CAN ACCEPT HOWEVER PT IS DECLINING GOING TO REHAB STATING SHE WANTS TO RETURN HOME WITH HOME HEALTH CARE. CM DISCUSSED BENEFITS OF ACUTE REHAB BUT PT CONTINUES TO REFUSE. SHE IS TEARFUL STATING SHE WANTS TO GO HOME AND BE WITH HER FAMILY. ATTENDING STATING IF PT CONTINUES TO PROGRESS POSSIBLE DISCHARGE TOMORROW OR THIS WEEKEND BACK HOME WITH HOME HEALTH AND OXYGEN. PT REPORTS NO PREFERENCE OF [facility] ID SO CM REACHED OUT TO [facility] WHO REPORTS THEY CAN SUPPLY THE OXYGEN AND HAVE AN OFFICE IN [place], [place] WHERE PT LIVES. CM FAXED REFERRAL FOR OXYGEN AND [facility] BROUGHT OUT TWO PORTABLE OXYGEN TANKS FOR PATIENT TO HAVE AT TIME OF DISCHARGE AND THEN PT WAS PROVIDED WITH THE CONTACT FOR [place] OFFICE TO CALL WHEN SHE IS LEAVING SO THEY CAN DELIVER THE CONCENTRATOR ([phone]). MARLON WAS ALSO NOTIFIED FROM PHYSICAL THERAPY PT IS NEEDING A WHEELCHAIR FOR HOME. CM FAXED SCRIPT TO [facility] AND NOTIFIED ATTENDING OF DOCUMENTATION NEEDED. ONCE PT IS DISCHARGED CONTACT [facility] AT [phone] AND THEY WILL DELIVER THE WHEELCHAIR TO PATIENTS HOME ONCE SHE ARRIVES THERE. REFERRAL WAS SENT TO [facility] PT HAS NO PREFERENCE OF COMPANY AND THEY CAN ACCEPT. ONCE PT IS DISCHARGED FAX THEM THE DISCHARGE ORDERS TO [phone]. PTS WILL PROVIDE TRANSPORTATION.
[2020-10-06 16:25] VITALS: BP 140/69
--- NOTE | 2020-10-06 17:08 | PATH ---
[facility] [place] [address] [address] PATHOLOGY RPT PROCEDURE Name: ORTEGA KNIGHT Room #: 447-P ADM IN .R.#: [id number] Admission: 09/26/20 Date of : 54 Discharge: Report #: [id number] Path Case #: [id number] Note [facility] Accession Number: [id number] TESTS RESULT FLAG UNITS REF RANGE LAB Clinician Provided Cytology Information No. of containers..01 Other (Miscellaneous) Source: RLL BAL DIAGNOSIS: RLL BAL INCONCLUSIVE. REACTIVE BRONCHIAL CELLS ARE PRESENT. PULMONARY MACROPHAGES (DUST CELLS) ARE PRESENT. THIS INTERPRETATION INCLUDES EVALUATION OF A CELL BLOCK. SCANT MARKEDLY ATYPICAL CELLS PRESENT, FAVOR NEOPLASTIC CELLS. SUPERFICIAL DETACHED SQUAMOUS EPITHELIAL CELLS ALONG WITH YEAST AND BACTERIAL AGGREGATES. Comment: Scattered rare markedly atypical cells are present. The background is comprised of keratinous squamous epithelial cells showing mild atypia as well as abundant yeast forms and bacterial aggregates which may be suggestive of oral contamination. The nuclear features of the atypical cells are worrisome for a partially sampled neoplasia. The concurrent biopsy is pending at the time of this report. Pathologist ICD10: 02 R91.8 Signed out by: 02 Deisy Gardner MD, Pathologist NPI- [id number] Performed by: 01 Sudeep Yadav, Oral Surgery Physician (ASCP) Gross description: 01 15ML, RED, 1TP 1CB /LCS 10/05/2020 1312 Local FLAG LEGEND: L-Low Normal,H-High Normal,LL-Alert Low,HH-Alert High <-Panic Low,>-Panic High,A-Abnormal,AA-Critical Abnormal Performed at: 01 [facility] [address] [place] [address] [address] [place] [address] Adan Olivarez MD, 02 [facility] [address] [address] [address] PATHOLOGY RPT PROCEDURE Name: ORTEGA KNIGHT Room #: 447-P [facility] IN [facility]#: [id number] Admission: 09/26/20 Date of : 54 Discharge: Report #: [id number] Path Case #: [id number] Deisy Gardner MD, Specimen Comment: A courtesy copy of this report has been sent to [phone] Specimen Comment: [phone] Specimen Comment: Report sent to / DR CARNES Performed at: [address], [place], [place] [id number] MD Adan Olivarez MD Phone: [phone]
[2020-10-06 20:56] VITALS: BP 128/67
[2020-10-07 03:18] VITALS: BP 161/100
--- NOTE | 2020-10-07 04:31 | NUR ---
PT IS VERY WEAK. SHE IS ALERT AND ORIENTED WITH INTERMITTENT CONFUSION. VERY CONGESTED COUGH. NONPRODUCTIVE. ON 12/07L/NC AT REST. SHE HAS BEEN INCONTINENT OF BLADDER A FEW TIMES BUT ALSO GOT UP TO THE BSC. HAD A SMALL BM.DRINKING SOME WATER. PT GETS EASILY IRRITATED AND FRUSTRATED.
[2020-10-07 07:49] VITALS: BP 152/82
--- NOTE | 2020-10-07 12:26 | NUR ---
discussed during prime time with bedside nurse, is saying she needs rehab to go home. pt was wanting to go home. possible will be new orders for 5n consult. if she ok to go home and needs hh cont with [facility] at home, and [facility] for home o2 if needed.
[2020-10-07 14:02] LABS: HEMATOCRIT 33.1 % (37.0-47.0); HEMOGLOBIN 10.8 gm/dL (12.0-15.0); MCH 27.4 pg (26.0-34.0); MCHC 32.6 g/dL (28.0-37.0); RBC 3.95 mil/uL (4.20-5.00); RDW 14.3 % (10.5-14.5); WBC 23.5 thou/uL (4.0-11.0)
[2020-10-07 14:18] LABS: ALBUMIN 1.8 g/dL (3.4-5.0); CALCIUM 8.7 mg/dL (8.5-10.1); CREATININE 1.1 mg/dL (0.6-1.0); MAGNESIUM 1.5 mg/dL (1.8-2.4); TOTAL BILIRUBIN 0.1 mg/dL (0.2-1.0); TOTAL PROTEIN 6.6 g/dL (6.4-8.2)
[2020-10-07 14:25] LABS: POTASSIUM 2.8 mmol/L (3.5-5.1)
[2020-10-07] MEDS ORDERED: CEFDINIR300 MG PO (14:30)
[2020-10-07] MEDS ORDERED: ENOXAPARIN40 MG/0.1 SUBQ (14:31)
[2020-10-07] MEDS ORDERED: IPRAT-ALBUT 0.5-3 ML INH (14:31)
[2020-10-07] MEDS ORDERED: METOPROLOL TART25 MG PO (14:32)
[2020-10-07] MEDS ORDERED: FELODIPINE 5 MG5 M1 PO (14:32)
[2020-10-07] MEDS ORDERED: ACETAMINOPHEN-CO5 ML PO (14:33)
[2020-10-07] MEDS ORDERED: PULMICORT0.25 MG/3 INH (14:35)
[2020-10-07] MEDS ORDERED: BENZONATATE100 MG PO (14:35)
[2020-10-07] MEDS ORDERED: SENNA-TIME S T1 EACH PO (14:36)
[2020-10-07] MEDS ORDERED: MIRALAX17 GM PO (14:36)
[2020-10-07] MEDS ORDERED: SOLU-MEDRO40 MG/1 M1 IV PUSH (14:37)
[2020-10-07] MEDS ORDERED: HUMALOG100 UNIT/1 SUBQ (14:38)
[2020-10-07 14:46] LABS: PLATELET COUNT 566 thou/uL (150-400)
[2020-10-07 15:37] VITALS: BP 135/62
--- NOTE | 2020-10-07 16:10 | NUR ---
PT IS AOX2-3 WITH CONFUSION. PT IS WILL USE BSC OR INCONTINENT OF URINE. PT HAS PICC IN [facility]. DR ORDER TO LEAVE PICC IN FOR TRANSFER. POTASSIUM REPLACEMENT STARTED. PT POTASSIUM IS 2.8. FALL PRECAUTIONS IN PLACE. NONPRODUCTIVE COUGH. PT WILL TRANSFER TO REHAB UNIT. BELONGINGS PACKED TO GO WITH PT. REPORT CALLED TO REHAB NURSE.
[2020-10-07 16:16] LABS: ABSOLUTE NEUTROPHILS 22.1 thou/uL (1.4-8.2)
[2020-10-07 16:17] LABS: PLATELET ESTIMATE INCREASED
== END 2020-10-07 16:47 | DRG 871 ==
LOC: ER 13:17 → 4S 15:22 → EROBS 15:22 → 4S 09-27 16:56
PROVIDERS: Emergency Medicine; Internal Medicine; Internal Medicine Pulmonary Disease; Physician Assistant; Specialist; ADMIT Hospitalist; ATTEND Hospitalist
DX: A41.9 Sepsis, unspecified organism (principal); J18.9 Pneumonia, unspecified organism; E43 Unspecified severe protein-calorie malnutrition; J96.21 Acute and chronic respiratory failure with hypoxia; J98.59 Other diseases of mediastinum, not elsewhere classified; J91.8 Pleural effusion in other conditions classified elsewhere; D68.61 Antiphospholipid syndrome; R91.8 Other nonspecific abnormal finding of lung field; Z96.652 Presence of left artificial knee joint; E87.6 Hypokalemia; E78.5 Hyperlipidemia, unspecified; K44.9 Diaphragmatic hernia without obstruction or gangrene; E78.00 Pure hypercholesterolemia, unspecified; J43.9 Emphysema, unspecified; K22.70 Barrett's esophagus without dysplasia; K29.70 Gastritis, unspecified, without bleeding; D64.9 Anemia, unspecified; R73.9 Hyperglycemia, unspecified; Z20.828 Contact with and (suspected) exposure to other viral communicable diseases; Z90.49 Acquired absence of other specified parts of digestive tract; Z87.891 Personal history of nicotine dependence; Z83.3 Family history of diabetes mellitus; Z81.8 Family history of other mental and behavioral disorders; Z86.73 Personal history of transient ischemic attack (TIA), and cerebral infarction without residual deficits; Z79.899 Other long term (current) drug therapy; Z68.27 Body mass index [BMI] 27.0-27.9, adult
CPT/HCPCS: 10195; 27000; 62110; 62900; 70005

== ENCOUNTER 2020-10-07 14:38 | Inpatient (IN) | payer OTHER ==
[~2020-10-07] VITALS: Ht 167.6 cm; Wt 83.0 kg
[~2020-10-07 14:38] MED LIST: ACETAMINOPHEN-CO5 ML PO; BENZONATATE100 MG PO; BUPROPION XL150 MG PO; CEFDINIR300 MG PO; ENOXAPARIN40 MG/0.1 SUBQ; FELODIPINE 5 MG5 M1 PO; HUMALOG100 UNIT/1 SUBQ; IPRAT-ALBUT 0.5-3 ML INH; LISINOPRIL10 MG PO; METOPROLOL TART25 MG PO; MIRALAX17 GM PO; OMEPRAZOLE40 MG PO; PRAVACHOL40 MG PO; PULMICORT0.25 MG/3 INH; SENNA-TIME S T1 EACH PO; SOLU-MEDRO40 MG/1 M1 IV PUSH
[2020-10-07 17:00] VITALS: BP 135/98
--- NOTE | 2020-10-07 18:53 | NUR ---
NEW ADMISSION FROM [facility], CAME IN AT 1650 ON A WC ACCOMPANIED BY 2 HOSPITAL STAFFS. PT IS ALERT AND ORIENTATED AND FORGETFUL. PLEASANT. PT HAS LUNG CANCER NEWLY DIAGNOSED AND COMPLAINS OF NON PRODUCTIVE COUGH. NEG FOR COVID. DENIES ANY PAIN. PT REPORTED HAD A BM TODAY. APPETITE GOOD FOR DINNER, ATE 95%. VSS WITH SAT 92% ON 4L. ROOM ORIENTATED GIVEN, ASSESSMENT DONE AND DOCUMENTED. CONT TO MONITOR.
[2020-10-07 20:45] VITALS: BP 146/72
--- NOTE | 2020-10-08 02:25 | NUR ---
PT DENIED PAIN SO FAR.UP WITH ASSIST TO BSC.SOB WITH EXERTION NOTED.PT ON 4L/NC.PT WITH NON PRODUCTIVE LOOSE COUGH.PT'S POTASSIUM LOW,REPLACED WITH PO MED.PT RESTING ON HER BED AT THIS TIME.CALL LIGHT WITHIN REACH.
[2020-10-08 07:04] LABS: HEMATOCRIT 31.7 % (37.0-47.0); HEMOGLOBIN 10.3 gm/dL (12.0-15.0); MCHC 32.6 g/dL (28.0-37.0); MCV 82.9 fL (80.0-100.0); PLATELET COUNT 517 thou/uL (150-400); RBC 3.82 mil/uL (4.20-5.00); RDW 14.4 % (10.5-14.5); WBC 18.8 thou/uL (4.0-11.0)
[2020-10-08 07:10] LABS: CALCIUM 8.2 mg/dL (8.5-10.1); MAGNESIUM 1.5 mg/dL (1.8-2.4); PHOSPHORUS 3.2 mg/dL (2.5-4.9); POTASSIUM 3.5 mmol/L (3.5-5.1)
[2020-10-08 08:02] VITALS: BP 146/67
--- NOTE | 2020-10-08 10:30 | NUR ---
ASSUMED CARE OF PT AT 0715. PT IS A&OX3. IS ON ROOM AIR. DENIES PAIN AT THIS TIME. IS STABLE. IS UP WITH 1 ASSIST, GB TO BSC. IS IMPULSIVE AT TIMES. IS ACROSS FROM NURSE STATION. FALL PRECAUTIONS & HOURLY ROUNDING CONTINUED THIS SHIFT. LABS & VITALS REVIEWED. PT IS CURRENTLY IN BED ASLEEP. CALL LIGHT WITHIN REACH. WILL CONTINUE TO MONITOR.
[2020-10-08 13:39] LABS: ABSOLUTE NEUTROPHILS 17.7 thou/uL (1.4-8.2); ANISOCYTOSIS SLIGHT
--- NOTE | 2020-10-08 19:32 | NUR ---
PT HAS BEEN IMPULSIVE 2X THIS SHIFT. CLIMBED OUT OF BED WITHOUT CALLING THE FIRST TIME & PUT SELF ON BSC. PT DOES NOT HAVE STEADY GAIT. THIS EVENING PT, JUMPED OUT OF BED & URINATED & HAD A BM IN THE TRASH CAN. PT STILL HAD HER BRIEF ON. SHE WAS ADMINISTERED LASIX. SHE WAS AWAKE & DID NOT WAIT FOR ASSISTANCE. PT IS SAFE. BACK IN BED. CALL LIGHT IS WITHIN REACH. WILL CONTINUE TO MONITOR.
[2020-10-08 19:56] VITALS: BP 131/69
--- NOTE | 2020-10-08 22:26 | NUR ---
CONTINUED CARE OF PT AT 1915. PT IS A&OX4, IS TEARFUL & ANXIOUS. IS ON 8L OF O2/NC. IS IMPULSIVE AT TIMES. FALL PRECAUTIONS & HOURLY ROUNDING CONTINUED. VITALS & LABS REVIEWED. IS UP WITH 1 ASSIST, GB, WALKER. HAS URINARY FREQUENCY & URGENCY WITH B&B. CALL LIGHT WITHIN REACH. PT IS CURRENTLY SLEEPING.
--- NOTE | 2020-10-09 05:54 | NUR ---
PT ALERT AND ORIENTED X 4. IMPULSIVE AT TIMES. INCONT OF STOOL X 1. 02 ON AT 8L PER NC. PT EXTREMELY SOB WITH EXERTION. RIGHT PICC LINE INTACT WITH DRESSING C/D/I. PT DENIES PAIN OR DISCOMFORT. BED ALARM ON FOR SAFETY.
[2020-10-09 08:00] VITALS: BP 130/76
[2020-10-09 09:39] LABS: FOLIC ACID 4.7 ng/mL (8.6-58.9)
--- NOTE | 2020-10-09 14:00 | NUR ---
ASSUMED CARE AT 0700. PT IS ALERT AND ORIENTATED, DOES GET IMPULSIVE WHEN SHE HAS TO GO TO THE BATHROOM. PT EDUCATED TO CALL FOR ASSISTANCE. APPETITE IS GOOD. DOES GET SHORT OF AIR WITH EXERTION. ON 8L OF 0XYGEN, WEAN DOWN TO 5L AND PT ENC TO USE IS AND FLUTTER, ABLE TO DO 1250ML. SAT 94% ON 5L. PT COMPLAINED OF R UA WEAKNESS AND UNABLE TO ENAMEL BUFFER HAND. ORDERS RECEIVED FOR CT HEAD AND SPINE AND RESULTS DISCUSSED BY TEJAS TO PT'S . PARTICIPATING IN THERAPIES, CONT TO MONITOR.
--- NOTE | 2020-10-09 15:50 | NUR ---
chart review. jose manuel tried to visit with estefanía, unable to rt with therapy and currently out of room for test. noted per chart. she lives home with spouse rubens [phone] or [phone]. independent at home. manange own medication. drives vehicla. no home o2 or dme prior to hospital. she ok with use of [facility] for home o2 and wheel chair if needed . [facility] with [facility] 2 [facility] to get her home with. will check with [facility] to see if going to [facility] o2 tanks. spoke with [place], [facility] will come by tomorrow morning and get the tanks, will have to bring other tanks out when she is going to [facility] home.
--- NOTE | 2020-10-09 20:33 | HC ---
[facility] [place] [address] [address] [place] [address] CONSULTATION Name: ORTEGA KNIGHT Room #: 513-P ADM IN M.R.#: [id number] Admission: 10/07/20 Attend Phys: Steve Kay MD Discharge: Date of : 54 Report #: [id number] THIS REPORT FOR: cc: Juanpablo Garcia MD, Rene P. MD [facility] tay MD ~ REQUESTING PHYSICIAN: Steve Kay MD REASON FOR CONSULTATION: Malignant right pleural effusion and questionable source of cancer. HISTORY OF PRESENT ILLNESS: The patient is a very pleasant 70-year-old female who was found on for several malignant right pleural effusion with carcinoma cells present. She underwent a bronchoscopy on 10/05/2020 which showed extrinsic compression of the right bronchial airways. Transbronchial needle biopsies are pending at this time; BAL was suspicious for neoplastic cells, but not diagnostic. The patient is currently up in rehabilitation. She denies no fevers, no chills, new arm or leg swelling. Does have some generalized weakness, but she feels like she is getting stronger. No new stomach troubles. No blood in urine or stool. She actually says she is feeling better. We had a discussion about the pending results. PAST MEDICAL HISTORY: Notable for the malignant right pleural effusion from late 09/2020. ER/[place], HER-2/luther are pending on that test. So, we doubt this is a breast cancer. Also, has a history of hypertension, hyperlipidemia, COPD, question of anticardiolipin syndrome in the past, but there are no events years ago. Also, right-sided weakness due to history of a TIA. Also include COPD. 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 [place]. has been staying with a brother here in town. The patient is a former smoker. No significant alcohol or street drugs. MEDICATIONS: At this time in the hospital currently include furosemide 40 mg daily IV; docusate 100 b.i.d., docusate, senna 4 tabs Friday, Friday and Friday; bupropion 150 daily; lisinopril 10 daily; MiraLax 17 grams daily; amlodipine 5 daily; pantoprazole 40 daily; atorvastatin calcium 10 mg at bedtime; metoprolol 50 b.i.d.; Lovenox 40 mg at bedtime; benzonatate Perles 100 mg b.i.d.; ipratropium and albuterol 3 mL respiratory therapy while awake, budesonide 0.25 mg respiratory therapy b.i.d.; Tylenol with Codeine syrup as needed; insulin, I think on a scheduled basis or p.r.n.; magnesium hydroxide p.r.n.; bisacodyl p.r.n.; cefdinir 300 mg b.i.d., begun on the for 20 doses; [facility] [address] [place] [address] CONSULTATION Name: ORTEGA KNIGHT Sonali Room #: 513-P [facility] IN ..#: [id number] Admission: 10/07/20 Attend Phys: Steve Kay MD Discharge: Date of : 54 Report #: [id number] methylprednisolone 40 b.i.d., begun on the 5th for 10 doses. PHYSICAL EXAMINATION: GENERAL: The patient appears her stated age. VITAL SIGNS: Height is 5 feet 6 inches, 167.6 cm; weight 183 pounds, though I note earlier been 170s, we will need to clarify which is correct that either be 83.3 kilograms or 77.1. Blood pressure recently is 131/69, O2 sat 96%, respirations 20, pulse 97, temperature orally is 97.7. MOOD: Place alert, conversant. We talked about the __ and the weather. NEUROLOGIC: Speech and thought pattern normal. Moving extremities. HEENT: Face appears symmetrical. LUNGS: Clear anteriorly without stridor, rhonchi, wheezes; has symmetric and unlabored expansion. HEART: Regular rate. LYMPHATICS: No enlarged lymph nodes in the supraclavicular, cervical or axillary region. ABDOMEN: Slightly obese. No masses. EXTREMITIES: Maybe trace edema. No clubbing or cyanosis. ASSESSMENT AND PLAN: 1. Malignant right-sided pleural effusion. Await pathology from bronchoscopy. As outpatient would consider PET scan, may also consider MRI head. If lung cancer, would like to do mutational testing. 2. Weakness, rehabilitation services. 3. Hyperglycemia, diabetes, insulin as needed. 4. History of stroke in the past, on prophylactic Lovenox. 5. Hypertension. Medications per others. 6. Chronic obstructive pulmonary disease and lung disease, aerosols per others. Also, methylprednisolone, also cefdinir for what may be postobstructive pneumonia. 7. Postobstructive pneumonia. Continues antibiotics and steroids. <ELECTRONICALLY SIGNED> By: Freeman Willett MD 10/09/202032 0 Freeman Willett MD /nt
[2020-10-09 21:00] VITALS: BP 118/54
--- NOTE | 2020-10-10 00:06 | NUR ---
PT ALERT AND ORIENTED X 4. UP TO BSC WITH ASSIST X 1. IMPULSIVE AT TIMES. INCONT STOOL X 1 IN EVENING. 02 ON AT 5L PER NC CONT. SOB WITH EXERTION. RIGHT PICC LINE INTACT AND PATENT. CONGESTED NON-PRODUCTIVE COUGH NOTED. PT DENIES PAIN OR DISCOMFORT. BED ALARM ON FOR SAFETY. PT APPEARS TO BE SLEEPING ON HOURLY ROUNDS.
[2020-10-10 04:54] LABS: HEMATOCRIT 30.6 % (37.0-47.0); HEMOGLOBIN 9.9 gm/dL (12.0-15.0); MCH 27.2 pg (26.0-34.0); MCHC 32.5 g/dL (28.0-37.0); MCV 83.7 fL (80.0-100.0); RBC 3.65 mil/uL (4.20-5.00); RDW 14.5 % (10.5-14.5); WBC 17.8 thou/uL (4.0-11.0)
[2020-10-10 08:00] VITALS: BP 127/53
[2020-10-10 10:39] VITALS: BP 114/60
--- NOTE | 2020-10-10 12:24 | NUR ---
team meeting, reccomendation: possible getting mri. 5 L 02 increased with 6-8Lnc with active. going to have speech eval. coccxy red, not open getting zinc cream for protection. was able to use fww for 25ft, 4 steps with handrails min assistance. pt reported she has fww at home. dc 18th with hh (pt, ot ,st, nurse). will be able to assist with pills and bill. he will be home with her. asking question rt hospice.
--- NOTE | 2020-10-10 15:46 | NUR ---
Alert and orientated X4. Calm, cooperative and compliant. Getting up to chair, wants to be more independent. Reg, even spontaneous resp without nasal flaring or retractions on 5 L FIO2 per NC. Becomes SOB with exertion with increased resp rate. O2 sats mid 90s. Breath sounds clear and slightly decreased on RLL. Did have 2 short periods that lasted seconds where she described sharp/dull pain underneath
[2020-10-10 15:50] VITALS: BP 112/56
[2020-10-10 20:30] VITALS: BP 118/50
--- NOTE | 2020-10-11 00:47 | NUR ---
PT ASSESSMENT COMPLETED AND VSS. MEDS GIVEN ORDERED AND WELL TOLERATED. FALL PRECAUTIONS IN PLACE. UP TO THE BSC WITH ASST/GAIT/WALKER. PT HAS A HARD TIME PULLING UP AND DOWN HER PANTS AND IS UNSTEADY. IMPULSIVE AT TIMES WHEN NEEDING TO GO TO THE BATHROOM. VOIDING LARGE AMOUNT OF YELLOW URINE. PT TEARFUL DURING THE NIGHT. PROVIDED MUCH EMOTIONAL SUPPORT. SAT WNL ON NC. PT STATES THAT HER BROTHER IS HAVING SURGERY TODAY AND THAT SHE IS PROCESSING HER NEW CANCER DIAGNOSIS. SLEEPING AT THIS TIME. WILL CONTINUE TO MONITOR FREQUENTLY.
[2020-10-11 07:36] VITALS: BP 145/83
--- NOTE | 2020-10-11 12:33 | NUR ---
ASSUMED CARE AT 0700. PT IS ALERT AND ORIENTATED, SEEMS DEPRESSED TODAY WITH HER CURRENT AND NEWLY DIAGNOSED CANCER METS. PT WANTS TO GO HOME SOON AND NEEDS ADDRESSED TO NURSING STAFF. DR CORNEJO AWARE AND PLAN FOR A FAMILY TRAINING SOON AND PLAN FOR DISCHARGE HOME BY END OF THE WEEK. PT IS AGREEABLE WITH PLAN. DENIES ANY PAIN FOR NOW. ORDERS PER DR LINN FOR DIAGNOSTIC MAMOGRAM INPATIENT AND FOR BREAST PANEL MARKERS. APPETITE GOOD, ACCUCHECKS WITH NO REQ FOR INSULIN. STILL HAVING A NON PRODUCTIVE COUGH. DENIES ANY ANDREW, LIGHTHEADEDNESS OR DIZZY. 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 PARTICIPATING WITH THERAPY. WILL CONT TO MONITOR.
--- NOTE | 2020-10-11 14:13 | NUR ---
jose manuel notified that pt and family want to dc 11th home. o2 exercise will be checked tomorrow , [facility] from [place] location for her home oxygen and [facility] will be from the [place] location [phone] fax #. referral to be sent and jose manuel notified [place] with [facility] ( location going [place] be from [place]
[2020-10-11 20:05] VITALS: BP 116/68
--- NOTE | 2020-10-12 01:45 | NUR ---
assumed care approx 1900 evening 10/11. pt lying in bed with head of bed elevated at change of shift. pt stated she was tired and wanted lights out and go to sleep. pt took hs meds with water tolerating well. pt using bsc at night to void. pt appears to be sleeping soundly. bed alarm on and call light in reach. will continue to monitor.
[2020-10-12 08:00] VITALS: BP 132/78
[2020-10-12 14:01] VITALS: BP 132/78
--- NOTE | 2020-10-12 14:24 | NUR ---
ASSUMED CARE OF PT AT 0700. PT IS A&OX4 AND VITAL SIGNS ARE STABLE. PT DENIES PAIN AND PARTICIPATED IN SCHEDULED THERAPIES. DR LIMA AT THE BEDSIDE THIS AM WITH SPOUSE IN ATTENDANCE. PLANS FOR DISCHARGE TOMORROW. REST AND EXERCISE COMPLETED. PT ON 4L O2 TO MAINTAIN O2 SAT >90. ACCU CHECKS ACHS. FALL PRECAUTIONS IN PLACE AND NURSING WILL CONTINUE TO MONITOR.
[2020-10-12 19:54] VITALS: BP 110/62
--- NOTE | 2020-10-12 23:56 | NUR ---
PT ALERT AND ORIENTED X 4. UP TO BSC WITH ASSIST X 1 WITHOUT DIFFICULTY. RIGHT PICC LINE INTACT. 02 ON AT4L PER NC CONT. SOB WITH EXERTION. CONGESTED NON-PRODUCTIVE COUGH NOTED. PT DENIES PAIN OR DISCOMFORT. BED ALARM ON FOR SAFETY. PT APPEARS TO BE SLEEPING ON HOURLY ROUNDS.
[2020-10-13 04:00] VITALS: BP 139/66
[2020-10-13 08:00] VITALS: BP 112/64
[2020-10-13] MEDS ORDERED: METOPROLOL TART25 MG PO ×2 (08:17→10:24)
[2020-10-13] MEDS ORDERED: IPRAT-ALBUT 0.5-3 ML INH (08:17)
[2020-10-13] MEDS ORDERED: MIRALAX17 GM PO (08:17)
[2020-10-13] MEDS ORDERED: FOLIC ACID1 MG PO (08:17)
[2020-10-13] MEDS ORDERED: PULMICORT0.25 MG/3 INH (08:17)
[2020-10-13] MEDS ORDERED: CEFDINIR300 MG PO (08:17)
[2020-10-13] MEDS ORDERED: LISINOPRIL10 MG PO ×2 (08:17→10:24)
[2020-10-13] MEDS ORDERED: LIPITOR10 MG PO (08:17)
[2020-10-13] MEDS ORDERED: BENZONATATE100 MG PO ×2 (08:17→10:24)
[2020-10-13] MEDS ORDERED: VITAMIN B-12500 MCG PO (08:17)
[2020-10-13] MEDS ORDERED: PREDNISONE 10 M10 M1 PO (08:19)
[2020-10-13 08:40] VITALS: BP 112/64
--- NOTE | 2020-10-13 09:27 | NUR ---
dc home today. [facility] will bring out 2 tanks for transportation home. [facility] in [place] will take over oxygen at home. [facility] rodrigue[facility] (pt, ot, nursing ).out of [place] location. spouse will transport her home.
--- NOTE | 2020-10-13 11:06 | NUR ---
PATIENT REMAIN ALERT, AND ORIENTED X 3-4 ABLE TO VOICE NEED. PATIENT TOOK ALL MEDICATION WHOLE WITHOUT DIFFICULTY, SHE IS EATING MEALS, AND DRINKING FLUID WELL. PATIENT DENIES HAVING PHYSICAL PAIN. [address] AT 4 LITES N/C, SOA ON EXERTION NOTED. PATIENT CHOOSE NOT TO TAKE MIRALAX, AND COLACE THIS MORNING. FALL PRECAUTION IN PLACE, NO SIGN OF ACUTE DISTRESS NOTED AT THIS TIME, CALL LIGHT IN REACH, WILL CONTINUE TO MONITOR.
--- NOTE | 2020-10-13 15:11 | NUR ---
FAXED REFERRAL AND SCRIPT FOR HOME O2 TO [facility] IN [place] SPOKE WITH [facility] IN INTAKE THEY CAN ACCEPT AND WILL SET UP HOME O2 ONCE PT ARRIVES HOME,
--- NOTE | 2020-10-13 16:46 | NUR ---
FAXED DC ORDERS/SUMMARY TO [facility] SPOKE WITH INTAKE THEY RECEIVED ORDERS AND WILL CALL TO ARRANGE VISITS WITH PT.
--- NOTE | 2020-10-16 09:20 | NUR ---
CORRECTION ON [facility] LOCATION IT WAS [facility].
[2020-10-16] MEDS ORDERED: NEBULIZER MISCELL (13:12)
--- NOTE | 2020-10-16 15:16 | NUR ---
WAS NOTIFIED BY [facility] THAT PT WAS NEEDING A NEBULIZER FOR BREATHING [facility] FAXED SCRIPT FOR NEBULIZER TO [facility] SPOKE WITH INTAKE AND THEY WILL DELIVER NEBULIZER TO PT'S HOME AND THE ALBUTEROL SCRIPT WAS ALREADY ENVIRONMENTAL HEALTH NURSE AT THE PHARMACY THAT PT LISTED.
--- NOTE | 2020-10-17 10:22 | H ---
[facility] [place] [address] HISTORY AND PHYSICAL Name: ORTEGA KNIGHT Room #: 513-P [facility] IN ..#: [id number] Admission: 10/07/20 Attend Phys: Steve Kay MD Discharge: 10/13/20 Date of : 54 Report #: [id number] THIS REPORT FOR: cc: Juanpablo Garcia MD, Rene P. MD Smithson,Steve Mccord MD ~ CC: Steve Garcia DATE OF SERVICE: 10/07/2020 HISTORY OF PRESENT ILLNESS: The patient is a 70-year-old female who has been admitted for acute in-hospital inpatient rehabilitation. She was originally admitted to [facility] on 09/26/2020 with nausea, vomiting, fatigue, weakness, abdominal pain, right chest wall pain, made worse with breathing. She was noted to have acute hypoxic respiratory failure with right - sided pneumonia and effusion. She underwent a thoracentesis. She had a right hilar mass noted with a T1 lytic lesion as well as a right adnexal mass. She underwent bronchoscopy as well and GI has been consulted for abdominal pain, nausea, vomiting and an EGD showed Aldridge's esophagus. Pathology for the pleural fluid showed metastatic carcinoma, pathology for the stomach and esophagus showed gastritis and Aldridge's esophagus. Oncology is involved. The pneumonia was thought to likely be postobstructive. Oncology is suspecting lung primary. The patient is on nasal prong O2. She has had significant functional decline with her mobility and ADLs. There have been noted cognitive concerns as well. The patient has been admitted now for acute in-hospital inpatient rehabilitation. She had been wanting to go back home, but it was not felt she was ready to return back to the home setting and she is amenable for the acute in-hospital inpatient rehabilitation stay. PAST MEDICAL HISTORY: Her prior medical history includes hypertension, hyperlipidemia and there is a history of a stroke. Apparently, she did not have significant residual from the stroke, but I did not specifically asked that question. Hypertension, hypercholesterolemia, and tachycardic, anticardiolipin antibody syndrome, history of herpes zoster and history of a TIA in 2017. PAST SURGICAL HISTORY: Includes laparoscopic cholecystectomy and appendectomy. FAMILY HISTORY: Children have heart disease. MEDICATIONS: Please see the full medication listing. HABITS: Include tobacco abuse, 1 pack per day, quitting in 2017 and used E-cigarettes until 06/2020. ALLERGIES: None to medications. [address] [address] HISTORY AND PHYSICAL Name: ORTEGA KNIGHT Room #: 513-P [facility] IN [facility].#: [id number] Admission: 10/07/20 Attend Phys: Steve Kay MD Discharge: 10/13/20 Date of : 54 Report #: [id number] SOCIAL HISTORY: Lives in a house with her and 2 stairs to enter, did not utilize gait aids, was not on oxygen. 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 There is a son that works, but could be of assistance. There is also a daughter in [place] that the patient indicates could come and stay with the patient upon discharge if warranted. REVIEW OF SYSTEMS: Appeared to be benign. No current chest pain, some shortness of breath with increased activity. No abdominal discomfort. Denies any bowel or bladder issues. She has no focal extremity pain complaints, but complains of overall generalized weakness. No skin issues were reported. She does have some cough. PHYSICAL EXAMINATION: GENERAL: She is a pleasant 70-year-old white female, in no obvious distress. VITAL SIGNS: Last recorded temperature 36.7, pulse 101, respirations 18, and blood pressure 146/72. NEUROLOGICAL: She is alert. She follows basic 1 step commands. She is currently on 5 liters nasal cannula. HEENT: Facies are symmetric. CHEST: Sounded clear to auscultation, she may have some diffuse decrease. CARDIOVASCULAR: Regular rate and rhythm. ABDOMEN: Bowel sounds positive, nontender. GENITOURINARY AND RECTAL: Deferred. EXTREMITIES: Functional range of motion of both upper extremities with strength grade 4-/5. DTRs are trace to 1. Lower extremities, no focal calf swelling, functional range of motion, strength is grade 4-/5. Tone appeared to be intact. No focal calf swelling. No significant distal lower extremity edema. She is needing min assist with basic transfers with min assist to try to ambulate a short distance with a front-wheeled walker. Needed her oxygen increased at a rate of 8-10 liters with increased activity. ASSESSMENT: A 70-year-old white female with the following problem list: 1. Medical complexity with generalized debilitation. 2. Lung mass, status post bronchoscopy with malignant cells. 3. Pneumonia, acute hypoxic respiratory failure, pleural effusion, status post thoracentesis. 4. Prior abdominal pain, nausea, vomiting, noted to have Aldridge's esophagus and gastroesophageal reflux disease. 5. Nicotine use by history. 6. Intermittent confusion and cognitive concerns. 7. Right hilar mass with T1 lytic lesion, right adnexal mass. PLAN: The patient has been admitted for acute in-hospital inpatient rehabilitation. Please see the patient's previous and current functional status. As far as risk of complications, she has multiple medical comorbidities as noted above. Initial plan of care involves the interdisciplinary acute [facility] [place] [address] HISTORY AND PHYSICAL Name: ORTEGA KNIGHT Room #: 513-P [facility] IN ..#: [id number] Admission: 10/07/20 Attend Phys: Steve Kay MD Discharge: 10/13/20 Date of : 54 Report #: [id number] inpatient rehabilitation program. Measurable functional goals would be for the patient to become modified independent with transfers, mobility, ADLs and also to further be assessed regarding cognitive issues. We will have speech therapy involved as well as neuropsychology. It is possible she has a concomitant multifactorial encephalopathy. Her prognosis is reasonably good with estimated length of stay probably around 7-14 days pending progress. Potential barriers would include her multiple medical comorbidities and decreased functional status. The patient meets diagnostic criteria for an acute in-hospital inpatient rehabilitation stay. She meets the medical necessity criteria. We will have the clinical program consultant physicians continue to follow. She does have the tolerance for therapies and has appropriate discharge goals back to the home setting. <ELECTRONICALLY SIGNED> By: Steve Kay MD 10/17/20 1022 [id number] Steve Kay MD /nt
--- NOTE | 2020-10-17 10:22 | PLAN ---
[facility] [place] [address] REHAB UNIT PLAN OF CARE Name: ORTEGA KNIGHT Room #: 513-P [facility] IN M.R.#: [id number] Admission: 10/07/20 Attend Phys: Steve Kay MD Discharge: 10/13/20 Date of : 54 Report #: [id number] THIS REPORT FOR: cc: Juanpablo Garcia MD, Rene P. MD Smithson,Steve Mccord MD ~ DATE OF SERVICE: 10/10/2020 PROGRESS NOTE/OVERALL PLAN OF CARE SUBJECTIVE: The patient is seen back today in followup. She has the right hand weakness and is a little vague as to when it started. She notes at times it would be stronger and at times weaker. Temperature 36.8, pulse 73, respirations 20, blood pressure 114/60. Right hand, no obvious atrophy. Wrist extension is at least a grade 4-/5. She is very weak, however, and finger abduction with intrinsics, only a grade 3 to 3-. 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 She has better strength proximally. Functionally, she has been working in therapies, is on nasal prong O2, 5 liters. She has been increased to 6 liters with activity. Transfers are contact guard with gait, contact guard 25 feet front-wheeled walker. Lower body dressing is max assist, upper body dressing is min assist. As far as language, she has got moderate memory deficits. We have neuropsychology involved as well as speech therapy. With the cognitive deficits, it is felt that she does have a multifactorial encephalopathy and likely has a hypoxic component with her pulmonary issues. Oncology is involved and she is pending an MRI of the brain. CT scan of the cervical spine did show more severe right-sided bony impingement at the right C6-C7 level. ASSESSMENT: A 70-year-old female with the following problem list: 1. 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 2. Medical complexity with generalized debilitation. 3. Lung mass, status post bronchoscopy with malignant cells. 4. Right hand intrinsic weakness. Likely significant cervical radiculopathy, but may have a concurrent contribution from the brain. We will need to see what the MRI of the brain shows. 5. Pneumonia, acute hypoxic respiratory failure, pleural effusion, status post thoracentesis. 6. Prior abdominal pain, nausea, vomiting, noted to have Aldridge's esophagus with GERD. 7. Nicotine use by history. 8. T11 lytic lesion. PLAN: The overall plan of care is based on the preadmission screen, post-admission physician evaluation and information gar[place] [address] REHAB UNIT PLAN OF CARE Name: ORTEGA KNIGHT Room #: 513-P [facility] IN M.R.#: [id number] Admission: 10/07/20 Attend Phys: Steve Kay MD Discharge: 10/13/20 Date of : 54 Report #: [id number] 1. Estimated length of stay is probably 10 days. Plan at this point is for discharge at the end of next week pending her progress. 2. Medical prognosis is reasonably good. 3. Anticipated interventions includes the interdisciplinary acute inpatient rehabilitation program. 4. Anticipated functional outcomes would be for the patient to become modified independent with transfers, mobility, ADLs, cognitive communication issues that she can return back to the home setting. 5. Discharge destination would be back home with . 6. Expected therapy by discipline includes PT and OT and speech 1 hour per day each five days a week throughout the duration of the acute inpatient rehabilitation stay. The patient's prognosis for significant practical improvement within a reasonable period of time appears good. Given the patient's complex medical condition and risk of further medical complication, rehabilitation services could not be safely provided at the lower level of care such as a fpc facility. <ELECTRONICALLY SIGNED> By: Steve Kay MD 10/17/20 1022 1422 0010 Steve Kay MD /nt
== END 2020-10-13 13:04 | disposition home health service (06) | DRG 947 ==
PROVIDERS: Internal Medicine; Internal Medicine Hematology & Oncology; Nurse Practitioner Family; ADMIT Physical Medicine & Rehabilitation; ATTEND Physical Medicine & Rehabilitation
DX: R53.81 Other malaise (principal); J18.9 Pneumonia, unspecified organism; J96.01 Acute respiratory failure with hypoxia; J44.0 Chronic obstructive pulmonary disease with (acute) lower respiratory infection; J44.1 Chronic obstructive pulmonary disease with (acute) exacerbation; G93.40 Encephalopathy, unspecified; J91.0 Malignant pleural effusion; I10 Essential (primary) hypertension; E78.5 Hyperlipidemia, unspecified; Z96.652 Presence of left artificial knee joint; D64.9 Anemia, unspecified; E87.6 Hypokalemia; E11.65 Type 2 diabetes mellitus with hyperglycemia; K22.70 Barrett's esophagus without dysplasia; E53.8 Deficiency of other specified B group vitamins; E55.9 Vitamin D deficiency, unspecified; Z86.73 Personal history of transient ischemic attack (TIA), and cerebral infarction without residual deficits; Z83.3 Family history of diabetes mellitus; Z82.0 Family history of epilepsy and other diseases of the nervous system; K21.00 Gastro-esophageal reflux disease with esophagitis, without bleeding
CPT/HCPCS: 10112